=== PATIENT | male | born 1985 | race Two or more races ===

== ENCOUNTER 2025-02-16 19:39 | Emergency (ER) | payer BC ==
[~2025-02-16] VITALS: Ht 182.9 cm; Wt 86.2 kg
[2025-02-16] MEDS ORDERED: KETOROLAC TROMETHAMINE 30 MG VIAL IV STA (20:32)
[2025-02-16] MEDS ORDERED: MORPHINE SULFATE 4 MG/ML VIAL IV STA (20:34)
[2025-02-16] MEDS ORDERED: TRAMADOL HCL 50 MG TABLET PO STA (20:34)
[2025-02-16] MEDS ORDERED: FLUMAZENIL 0.5 MG/5 ML ML IV STA (22:25)
[2025-02-16] MEDS ORDERED: MIDAZOLAM HCL/PF 5 MG/ML VIAL IV STA (22:25)
== END 2025-02-16 22:56 | disposition home or self-care (01) ==
LOC: ER 21:02
DX: S53.115A Anterior dislocation of left ulnohumeral joint, initial encounter (principal); W10.8XXA Fall (on) (from) other stairs and steps, initial encounter; Y93.89 Activity, other specified; Y92.832 Beach as the place of occurrence of the external cause; Y99.9 Unspecified external cause status